=== PATIENT | male | born 1990 | race Caucasian/White ===

== ENCOUNTER 2022-09-15 03:38 | Emergency (ER) | payer OTHER ==
[2022-09-15 03:44] VITALS: O2SAT 98
[2022-09-15 04:46] LABS: INFLUENZA A NEGATIVE (NEGATIVE); INFLUENZA B NEGATIVE (NEGATIVE); RESPIRATORY SYNCTIAL VIRUS NEGATIVE (Negative); SARS-CoV-2 Xpert Express NEGATIVE (NEGATIVE)
[2022-09-15] MEDS ORDERED: HYDROCODONE-ACETAMIN 2.5-108/5 ML SOLUTION PO STA (05:13)
[2022-09-15] MEDS ORDERED: DELTASONE 20 MG PO ONE (05:13)
--- NOTE | 2022-09-15 05:16 | ERPHSYRPT ---
- History of Present Illness Time Seen by Provider: 09/15/22 03:55 Source: patient Exam Limitations: no limitations Patient Subjective Stated Complaint: c/o sore throat x1 week, "I thought I had thrush" Triage Nursing Assessment: pt ambulated into ER without diff, pt alert and oriented x4, cooperative. Pt c/o sore throat x1 week but it got worse during the night at work. Pt is hoarse, throat is red and sore when swallowing. Pt also has anxiety. Pt thought he was developing thrush. Physician History: This is a 32-year-old white male patient who is a current daily smoker cigarettes and presents with 1 week history of persistent sore throat and cough. Patient denies earache. Patient denies chest pain. Patient denies shortness of breath. Patient denies abdominal pain. He said no nausea vomiting or diarrhea or fever. Patient's history was obtained directly from the patient. Timing/Duration: week(s) (1) Allergies/Adverse Reactions: No Known Drug Allergies Allergy (Unverified 09/15/22 03:50) Hx Tetanus, Diphtheria Vaccination/Date Given: Yes Hx Influenza Vaccination/Date Given: No Hx Pneumococcal Vaccination/Date Given: No Immunizations Up to Date: Yes Travel Risk - International Travel Have you traveled outside of the country in past 3 weeks: No - Coronavirus Screening Are you exhibiting any of the following symptoms?: No Close contact with a COVID-19 positive Pt in past 14-21 Days: No - Vaccine Status Have you recieved a Covid-19 vaccination: No - Review of Systems Constitutional: No Symptoms Eyes: No Symptoms Ears, Nose, & Throat: Throat Pain, Hoarse (Mild), No Ear Pain Respiratory: Cough Cardiac: No Symptoms, No Chest Pain Abdominal/Gastrointestinal: No Symptoms Genitourinary Symptoms: No Symptoms Musculoskeletal: No Symptoms Skin: No Symptoms Neurological: No Symptoms Psychological: No Symptoms Endocrine: No Symptoms Hematologic/Lymphatic: No Symptoms Immunological/Allergic: No Symptoms All Other Systems: Reviewed and Negative - Past Medical History Pertinent Past Medical History: Yes Other Medical History: broken nose - Past Surgical History Past Surgical History: Yes Other Surgical History: bone spur removed off toe - Social History Smoking Status: Current every day smoker How long have you smoked: 18 years Exposure to second hand smoke: Yes Drug Use: none Patient Lives Alone: No - Nursing Vital Signs Nursing Vital Signs: Initial Vital Signs Temperature 98.1 F 09/15/22 03:42 Pulse Rate 63 09/15/22 03:42 Respiratory Rate 17 09/15/22 03:42 Blood Pressure 154/88 09/15/22 03:42 O2 Sat by Pulse Oximetry 98 09/15/22 03:42 Pain Scale Pain Intensity 2 - Physical Exam General Appearance: no apparent distress, alert, anxiety Eye Exam: PERRL/EOMI, eyes nml inspection Ears, Nose, Throat Exam: moist mucous membranes, pharyngeal erythema, No tonsillar exudate Neck Exam: normal inspection, non-tender, supple, full range of motion Respiratory Exam: normal breath sounds, lungs clear, airway intact, No chest tenderness, No respiratory distress Cardiovascular Exam: regular rate/rhythm, normal heart sounds, normal peripheral pulses Gastrointestinal/Abdomen Exam: soft, normal bowel sounds, No tenderness Rectal Exam: not done Back Exam: normal inspection, normal range of motion, No CVA tenderness, No vertebral tenderness Extremity Exam: normal inspection, normal range of motion, pelvis stable Neurologic Exam: alert, oriented x 3, cooperative, 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, normal mood/affect, nml cerebellar function, nml station & gait, sensation nml Skin Exam: normal color, warm, dry Lymphatic Exam: No adenopathy SpO2 Interpretation: normal SpO2: 98 O2 Delivery: Room Air - Course Nursing assessment & vital signs reviewed: Yes Lab/Rad Data: Laboratory Results 09/15/22 09/15/22 Range/Units 04:01 04:01 Influenza Type A Ag NEGATIVE (NEGATIVE) Influenza Type B Ag NEGATIVE (NEGATIVE) RSV (PCR) NEGATIVE (Negative) SARS-CoV-2 (PCR) NEGATIVE (NEGATIVE) Group A Strep Antibody NOT DETECTED (NEGATIVE) - Progress Progress: improved, re-examined Air Movement: good Progress Note: 09/15/22 05:14 Medical decision making: This patient has a pharyngitis as well as a cough and upper respiratory infection. His medical issues are of low complexity. This is based on the history obtained from the patient, physical exam findings as well a s review of the patient's medication and allergy list. The above prompted me to order strep test and viral swabs. Review of the results was performed by me. There is also prompted me to formulate a discharge plan of increase cool fluid intake, avoid smoke exposure, take prescriptions of steroid, azithromycin and hydrocodone/acetaminophen antitussive medication. He is also to follow-up with his primary care provider for persistent symptoms. I also discussed with him smoking sensation options. 09/15/22 05:18 Blood Culture(s) Obtained: No Antibiotics given: No Counseled pt/family regarding: lab results, diagnosis, need for follow-up - Departure Departure Disposition: Home Clinical Impression: Pharyngitis, Upper respiratory infection Condition: Stable Critical Care Time: No Referrals: MARGA EVANS [employer]IN[employer] ACCOUNT CLERK [Primary Care Provider] - Follow up/PCP as directed Additional Instructions: Drink plenty of cool liquids. Avoid exposure to any type of fumes or smoke. Return to work on Sunday, September 18, 2022. Follow-up with your primary care provider for persistent symptoms. Take your medication as prescribed Forms: Work/School Release Form Prescriptions: Hydrocodone/Acetaminophen [Hydrocodone-Acetamn 7.5-325/15] 10 ml PO Q8H PRN PRN #120 ml MDD 30 ml PRN Reason: Cough Prednisone 10 mg [Deltasone 10 mg] 10 mg PO TID #12 tablet Azithromycin 250 mg [Zithromax 250 MG TABLET] 250 mg PO ZPACK #6 tablet
[2022-09-15] MEDS ORDERED: HYDROCODONE-ACETAMIN 2.5-108/5 ML SOLUTION ONE (05:19)
[2022-09-15] MEDS ORDERED: DELTASONE 20 MG ONE (05:20)
[2022-09-15 05:34] VITALS: BP 149/77; PULSE 64
== END 2022-09-15 05:33 | disposition home or self-care (01) ==
LOC: ED 03:38
DX: J06.9 Acute upper respiratory infection, unspecified (principal); J02.9 Acute pharyngitis, unspecified; R05.1 Acute cough; Z79.891 Long term (current) use of opiate analgesic; Z79.52 Long term (current) use of systemic steroids; Z72.0 Tobacco use; Z28.310 Unvaccinated for COVID-19
CPT/HCPCS: 0241U; 87651; 99283; A9270-GY